=== PATIENT | male | born 1965 | race Caucasian/White ===

== ENCOUNTER 2018-03-06 18:33 | Emergency (ER) | payer OTHER, SELFPAY ==
[2018-03-06 18:40] VITALS: BP 158/95; PULSE 87; RESP 20; TEMP 36.4; O2SAT 98; BMI 32.1
[2018-03-06 19:38] VITALS: BP 136/81; PULSE 74; RESP 15; O2SAT 95
[2018-03-06 20:29] VITALS: BP 130/78; PULSE 72; RESP 16; TEMP 37.1; O2SAT 98
--- NOTE | 2018-03-08 03:40 | ED_ITS ---
HPI - Dizziness General Chief Complaint: Dizziness Stated Complaint: SOB,DIZZINESS,DISORIENTED,NAUSEA Time Seen by Provider: 03/06/18 19:35 Source: patient Mode of arrival: ambulatory Limitations: no limitations History of Present Illness HPI Narrative: 52-year-old female presents to the emergency department with a chief complaint of some nausea and diarrhea an occasional sense of feeling dizzy over the course of the past day or 2. She denies any more specific findings and has no vomiting or fever or chills. She has no chest pain or shortness of breath. She denies any abdominal pain. Her symptoms are now resolved. She denies any new medications or change in diet complaint: dizziness Onset (ago): day(s) Timing: gradual onset History of similar episodes: No History of trauma: No Severity: mild Relieving factors: nothing Exacerbating factors: nothing Associated symptoms: denies other symptoms Related Data Allergies Allergy/AdvReac Type Severity Reaction Status Date / Time Penicillins Allergy Verified 03/06/18 18:40 Review of Systems Review of Systems All systems reviewed & are unremarkable except as noted in HPI and below Constitutional Denies chills, Reports fatigue, Denies fever(s), Denies lethargy and Denies weakness Eyes Denies change in vision, Denies eye discharge, Denies irritation and Denies loss of vision ENT Ears, Nose, Mouth, and Throat: Denies change in voice, Reports dizziness, Denies neck pain and Denies sore throat Cardiovascular Denies chest pain, Denies irregular heart rhythm, Denies lightheadedness, Denies palpitations, Denies dyspnea, Denies dyspnea on exertion and Denies orthopnea Respiratory Denies cough, Denies dyspnea, Denies dyspnea on exertion and Denies wheezing Gastrointestinal Gastrointestinal: Denies abdominal pain, Denies change in bowel habits, Reports diarrhea, Reports nausea and Denies vomiting Genitourinary Denies hematuria, Denies flank pain, Denies urinary incontinence and Denies urinary urgency Musculoskeletal Denies neck pain Integumentary/Breasts Denies pruritus, Denies erythema, Denies rash and Denies wounds Neurologic Denies confusion, Reports dizziness, Denies loss of vision and Denies weakness Psychiatric Denies anxiety, Denies confusion, Denies depression, Denies homicidal ideation and Denies suicidal ideation Endocrine Reports fatigue and Denies palpitations Hematologic/Lymphatic Denies easy bruising Allergic/Immunologic Denies wheezing [facility] Social History Smoking Status: Never smoker Exam Narrative Exam Narrative: GEN: AOx3 and in mild distress EYES: Pupils are equal, round, and reactive to light and accommodation. Extraoccular muscles are intact bilaterally. There is no subconjunctival hemorrhage or exudate. CHEST: Lungs are clear to auscultation bilaterally and free of wheezes, rales, or rhonchi. Heart rate is regular rhythm, there are no murmurs, clicks, rubs, or gallops. There is no chest wall tenderness. ABD: Abdomen is soft and nontender. There is no guarding or rebound. Bowel sounds are normal in all 4 quadrants. There is no mass or organomegaly. EXT: Full painless ROM of all extremities with no loss of sensation or strength. SKIN: Warm, pink, and dry. No erythema or rash Initial Vital Signs Initial Vital Signs: Vital Signs Temperature 97.6 F 03/06/18 18:40 Pulse Rate 87 03/06/18 18:40 Respiratory Rate 20 03/06/18 18:40 Blood Pressure 158/95 H 03/06/18 18:40 Pulse Oximetry 98 03/06/18 18:40 Discharge Plan Departure Patient Disposition: Home Clinical Impression: Dizziness, Weakness Discharge Date/Time: 03/06/18 20:30 Interventions: ED Discharge Assessment Last Done: 03/06/18 20:29 Instructions: DI for Dizziness-Nonvertigo Activity Restrictions/Additional Instructions: *You have been diagnosed with [ dizziness, weakness ] *What to do: *Continue to take medications as directed *Follow up with your primary care provider in 2-3 days, call for an appointment. Let them know you were seen in the Emergency Department and that we ask that you be seen in follow up *Return to ER if you should have any new, worsening or concerning symptoms , such as [ recurrence of symptoms, development of other concerning symptoms]
== END 2018-03-06 20:30 | disposition home or self-care (01) ==
PROVIDERS: Emergency Provider Emergency Medicine
DX: R42 Dizziness and giddiness (principal); R53.1 Weakness
CPT/HCPCS: 93005; 93010; 99282; 99283